=== PATIENT | male | born 1940 | race Caucasian/White ===

== ENCOUNTER → 2017-05-23 | Outpatient (CLI) | payer MEDICARE ==
--- NOTE | 2017-05-23 22:20 | PN ---
PROGRESS NOTE This is a 76-year-old male patient coming in for an annual check regarding his obstructive sleep apnea. He is still grieving the loss of his . He is very compliant with BiPAP therapy. The patient has severe GINGER with an AHI of 74. I checked his BiPAP compliance, and he is averaging about 8.8, hours of BiPAP use every night. His AHI while treatment down to 1.0. His BiPAP use for more than 4 hours is 100% of the time. Leak factor is 24 L/minute and he is using a medium-sized Simplus full-face mask. He is doing well. No symptoms of heart failure. He has an ejection fraction of 20%. He also has chronic atrial fibrillation. No major hypersomnia or sleepiness during the day. His treatment remains successful. PHYSICAL EXAMINATION: BP is 108/59, pulse 54, respirations 16, temperature 98.0, saturation 95% on room air. Weight is 2(). Height is 5 feet 7 inches. BP 154/75, pulse 50, respiration 16, temperature 97.6. Weight is 246. Saturation 98% on room air. GENERAL APPEARANCE: Obese, calm, comfortable. HEENT: Crowding of the posterior pharynx. There is no goiter or neck mass. LUNGS: Diminished breath sounds bilaterally; otherwise clear. Heart sounds are irregular rhythm. Normal S1, S2. No S3. No S4. No murmurs. Abdomen is soft, nontender. No organomegaly. EXTREMITIES: No edema. No cyanosis or clubbing. IMPRESSION: 1. Severe symptomatic obstructive sleep apnea with an AHI of 74, and the patient continues to receive successful BiPAP therapy at a pressure of 18/14 cm of water. 2. Severe nocturnal oxygen desaturation, recovered with BiPAP therapy. Note that the patient also utilizes oxygen at 3 L along with his BiPAP. 3. Congestive heart failure with an ejection fraction of 20%. 4. Chronic atrial fibrillation. 5. Secondary pulmonary hypertension. 6. Secondary erythrocytosis. 7. Hypertension. PLAN: Treatment is successful. Will renew the patient's supplies. No need for any pressure adjustments. Encourage weight loss. See me back in a year's time, earlier if needed. MMODL / IJN: [id number] /
== END ==
LOC: SLEEP 13:26
PROVIDERS: ATTEND Internal Medicine Critical Care Medicine
DX: G47.33 Obstructive sleep apnea (adult) (pediatric) (principal); I50.9 Heart failure, unspecified; I48.91 Unspecified atrial fibrillation; I27.2 Other secondary pulmonary hypertension; D75.1 Secondary polycythemia

== ENCOUNTER → 2018-06-19 | Outpatient (CLI) | payer MEDICARE ==
--- NOTE | 2018-06-19 15:48 | PN ---
PROGRESS NOTE This is a 77-year-old male patient with severe symptomatic obstructive sleep apnea, AHI of 74, currently on a BiPAP pressure of 18/14 cm of water. He is coming in for an annual check. The patient also is known to have multiple medical problems and comorbidities, including CHF, EF around 20%, chronic atrial fibrillation. He is obese with a BMI of 36.4. His weight has been down by around 6 to 8 pounds since his last visit. He remains on a BiPAP pressure of 18/14 cm of water. He continues to benefit from the treatment. Based on the compliance data, the patient has been on BiPAP therapy for more than 4 hours 100% of the time. His average BiPAP use is around 8.7 hours per night. His leak factor is 41 L/minute and his AHI while on treatment is down to 0.6. Tidal volume is roughly 80. Respiratory rate is around 19. He has no specific complaints. He continues to use a medium-sized full-face mask for now. REVIEW OF SYSTEMS: Twelve-point review of systems was done. He is doing well. [place] score is down to 2. No hypersomnia or sleepiness. He does not take any naps during the day. No nocturnal chest pain or arrhythmias nor nocturnal palpitation, heartburn, chest pain or shortness of breath. PHYSICAL EXAMINATION: BP is 112/60, pulse 80, respirations 18, temperature 97.0, saturation 92% on room air. Weight is 226. Height is 5 feet 6 inches and BMI is 36.4. GENERAL APPEARANCE: Calm, comfortable, obese. Head is atraumatic, normocephalic. NECK: Supple. No JVD. No goiter or neck mass. Mallampati class IV. Lung sounds are diminished; otherwise clear. HEART: Heart sounds are irregular S1, S2 consistent with atrial fibrillation. No significant murmurs appreciated. ABDOMEN: Soft, nontender. No organomegaly. No direct tenderness, rebound tenderness or guarding. EXTREMITIES: No edema. No cyanosis or clubbing. Neurologically he is alert and oriented x3. There is no focal neurological deficit. PSYCHIATRIC: Negative for anxiety or depression. SKIN: Negative for any wounds or ulceration. IMPRESSION: 1. Severe obstructive sleep apnea, apnea/hypopnea index of 74. He continues to be successfully treated with a BiPAP at a pressure of 18/14 cm of water. 2. Severe nocturnal oxygen desaturation. Currently on BiPAP therapy in addition to oxygen 3 L by nasal cannula. 3. Obesity with body mass index of 36.4, with interval weight loss. 4. Chronic atrial fibrillation. 5. Congestive heart failure with an ejection fraction of around 20%. 6. Pulmonary hypertension. 7. Secondary erythrocytosis, improved. 8. Hypertension. PLAN: 1. Continue BiPAP therapy at the same level of pressure. No need for any adjustments. 2. Renew the CPAP mask, tubing and supplies. 3. Encourage further weight loss. 4. Implement good sleep hygiene measures. See me back in a year's time in followup, earlier if needed. MMODL / IJN: [id number] /
== END | disposition home or self-care (01) ==
LOC: SLEEP 13:47
PROVIDERS: ATTEND Internal Medicine Critical Care Medicine
DX: G47.33 Obstructive sleep apnea (adult) (pediatric) (principal); E66.9 Obesity, unspecified; I48.2 Chronic atrial fibrillation; I11.0 Hypertensive heart disease with heart failure; I50.9 Heart failure, unspecified; I27.20 Pulmonary hypertension, unspecified; Z68.36 Body mass index [BMI] 36.0-36.9, adult; Z99.89 Dependence on other enabling machines and devices

== ENCOUNTER → 2019-07-09 | Outpatient (CLI) | payer MEDICARE ==
--- NOTE | 2019-07-09 18:31 | PN ---
PROGRESS NOTE This is a 79-year-old male patient coming in for an annual check regarding obstructive sleep apnea. The patient has severe GINGER with an AHI of 75. He lives independently at home, and he has a daughter who takes care of him for his medical problems. The patient is currently on a BiPAP at a pressure of 18/14 cm of water. He is using a Simplus large-sized mask. He is also known to have congestive heart failure and chronic atrial fibrillation as comorbidities. On today's evaluation, the patient is looking great. I checked his compliance data, and the patient has been averaging around 6.5 hours of BiPAP use per night. His BiPAP use for more than 4 hours is 100%. His leak is at 38 L/minute. Tidal volume is at 360 with a ventilation of 6.6 and respiratory rate of 18. AHI while on treatment is down to 0.7. He is using a Simplus large full-face mask. He is noticing some leaks. On today's evaluation, I lowered his BiPAP pressure to 16/12 cm of water. I also gave him an AirFit F20 medium-sized full- face mask to try. Otherwise he is doing well. No major hypersomnia or sleepiness during the day. He continues to benefit from the treatment. PHYSICAL EXAMINATION: VITAL SIGNS: BP is 96/65, pulse is 76, respirations 16, temperature 97.7, saturation 93% on room air. Height is 5 feet 6 inches, weight 226, BMI 36.4. GENERAL APPEARANCE: Obese, calm, comfortable. HEAD: Atraumatic, normocephalic. NECK: Supple. There is no JVD. No goiter or neck masses. Mallampati class IV. LUNGS: Clear to auscultation. HEART: Heart sounds are regular rate and rhythm. Normal S1, S2. No S3, S4. No murmurs. ABDOMEN: Soft, nontender. No organomegaly. EXTREMITIES: No edema. No cyanosis or clubbing. NEUROLOGIC: Alert and oriented x3. No focal neurological deficits. PSYCHIATRIC: Negative for anxiety or depression. IMPRESSION: 1. Severe obstructive sleep apnea with an apnea/hypopnea index of 74, currently well treated with a BiPAP pressure of 18/14. The only issue for now is the increased leak around the mask. 2. Severe nocturnal oxygen desaturation, improved with BiPAP therapy. 3. Obesity; currently inactive and stable weight. 4. Chronic atrial fibrillation. 5. Congestive heart failure; ejection fraction around 20%. 6. Secondary pulmonary hypertension. 7. Secondary erythrocytosis. 8. Hypertension. PLAN: Lower the BiPAP pressure down to 16/12 cm of water. This was done, as the patient's AHI was less than 5; in fact, it was 0.7 while on treatment, and the patient was having excessive leaks. Continue using the Simplus full-face mask. I offered the patient an AirFit F20 medium-sized full-face mask as an alternative. Monitor the leaks. Monitor the apnea-hypopnea index while on a BiPAP pressure of 16/12 and let me know if there are any symptoms involving while on this pressure. Otherwise, the patient will see me back in a year's time in followup. ALEXANDER / LADONNA: [id number] /
== END | disposition home or self-care (01) ==
LOC: SLEEP 15:15
PROVIDERS: ATTEND Internal Medicine Critical Care Medicine
DX: G47.33 Obstructive sleep apnea (adult) (pediatric) (principal); E66.9 Obesity, unspecified; I11.0 Hypertensive heart disease with heart failure; I48.20 Chronic atrial fibrillation, unspecified; I50.9 Heart failure, unspecified; I15.9 Secondary hypertension, unspecified; D75.1 Secondary polycythemia; Z68.36 Body mass index [BMI] 36.0-36.9, adult

== ENCOUNTER → 2021-03-02 | Outpatient (CLI) | payer MEDICARE ==
--- NOTE | 2021-03-02 18:00 | PN ---
PROGRESS NOTE 79-year-old male patient, known history of severe obstructive sleep apnea with an AHI of 75, coming in for annual check. His last evaluation was in June of 2019. He is known to have other comorbidities including COPD and CHF. The patient has an ejection fraction of 20% along with secondary pulmonary hypertension. He has been maintained on a pressure of 18/14 cm of water. During his last evaluation in 2019, I noted that he has been doing well and the patient had excellent clinical response to his BiPAP treatment. Based on that, I lowered the BiPAP pressure down to 16/12 cm of water. Noted back then he was having some increased leak around the mask. On today's evaluation, I noticed that the leaks are still present and they are in the order of 118 L/minute. His current BiPAP pressure is around 16/12. He has demonstrated excellent use. He is utilizing his BiPAP machine every night at a pressure of 16/12 and his pressure and his BiPAP use for more than 4 hours is 100%. He has been averaging around 6.4 hours of BiPAP use per night. Tidal volume is at 420 with a respiratory rate of 18 and a minute ventilation of 7.6. His AHI is down to 11 while being on BiPAP. He is using also a Simplus full-face mask, large size. I checked the mask fit. The mask fit was great. Nevertheless, his head piece is quite loose and this is probably contributing to his ongoing air leaks. He has lost around 15 pounds since last evaluation. No COPD exacerbation. No CHF exacerbations. No other significant cardiovascular or pulmonary events over the past 2 years. No hospitalizations. No change in medications. REVIEW OF SYSTEMS: Fourteen-point review of system was done, positive findings are mentioned in history of present illness. He is hard of hearing and communication was being done through the daughter. PHYSICAL EXAMINATION: VITAL SIGNS: BP is 106/59, pulse 75, respirations 22, temperature 96.7. Saturation is 93% on room air. [place] score is at 2. BMI 32.8, body weight is 210. GENERAL APPEARANCE: Calm comfortable. HEAD: Atraumatic, normocephalic. NECK: Supple. Mallampati class 4. There is no goiter or neck masses. LUNGS: Diminished bilaterally, otherwise clear. HEART: Heart sounds are distant. Regular rhythm normal S1, S2. No S3, S4. No murmurs. Heart sounds are irregular. ABDOMEN: Obese soft nontender. Organs cannot be accurately palpated. There is no direct tenderness rebound tenderness or guarding. EXTREMITIES: Trace edema. There is no cyanosis or clubbing. NEUROLOGIC: Awake alert. There is no focal neurological deficit. IMPRESSION: 1. Severe obstructive sleep apnea, AHI of 74 baseline, currently on a BiPAP pressure of 16/12. 2. Severe nocturnal oxygen desaturation improved with BiPAP therapy. 3. Obesity with interval 15 pounds weight loss current body weight is around 210. 4. Chronic atrial fibrillation. 5. CHF, EF around 20% consistent with chronic systolic heart failure, compensated. 6. Secondary pulmonary hypertension. 7. Secondary erythrocytosis. 8. Hypertension. PLAN: 1. Continue BiPAP at pressure of 16/12 cm of water. 2. Do the Simplus full-face mask and improve the mask seal by tightening the head gear. 3. Monitor the leaks. 4. Encouraged further weight loss. 5. No need to increase the pressure again. His treatment has been adequate for now. 6. Refill supplies. 7. See back in a year's time in followup, earlier if needed. Overall cardiopulmonary status has been stable over the past 2 years. BiPAP therapy has been adequate. MMODL / IJN: [id number] /
== END ==
LOC: SLEEP 15:04
PROVIDERS: ATTEND Internal Medicine Critical Care Medicine
DX: G47.33 Obstructive sleep apnea (adult) (pediatric) (principal); I48.20 Chronic atrial fibrillation, unspecified; E66.9 Obesity, unspecified; I11.0 Hypertensive heart disease with heart failure; I50.9 Heart failure, unspecified; D75.1 Secondary polycythemia; I27.29 Other secondary pulmonary hypertension; Z68.32 Body mass index [BMI] 32.0-32.9, adult; Z99.89 Dependence on other enabling machines and devices